=== PATIENT | male | born 1940 | race Hispanic/Latino ===

== ENCOUNTER → 2020-10-24 | Outpatient (CLI) | payer MEDICARE ==
[~2020-10-24] MED LIST: LISINOPRIL10 MG PO; LOVASTATIN40 MG PO; MULTI-VITAMIN1 EACH PO
== END ==
LOC: RAD 09:27
PROVIDERS: ATTEND Nurse Practitioner
DX: J32.9 Chronic sinusitis, unspecified (principal)
CPT/HCPCS: 70220